=== PATIENT | male | born 1945 | race Caucasian/White ===

== ENCOUNTER 2017-01-14 01:37 | Emergency (ER) | payer MEDICARE, OTHER ==
[~2017-01-14] VITALS: Ht 182.9 cm; Wt 99.8 kg
[~2017-01-14 01:37] MED LIST: ATEN-60 PO; INSULIN SC; LISI-646 PO
[2017-01-14 02:34] LABS: Basophils # (auto) 0.1 uL; Basophils % (auto) 0.5 % (0.0-2.0); Eosinophils # (auto) 0.3 uL; Eosinophils % (auto) 2.5 % (0.0-7.0); Hematocrit 39.1 % (41.0-53.0); Lymphocytes # (auto) 1.2 uL; Mean Corpuscular Hgb Conc. 33.3 g/dL (32.0-36.0); Mean Corpuscular Volume 90.2 fL (80.0-100.0); Mean Platelet Volume 7.9 fL (7.4-10.4); Monocytes % (auto) 7.5 % (0.0-12.0); Neutrophils # (auto) 10.4 uL; Neutrophils % (auto) 80.5 % (37.0-80.0); Platelet Count (auto) 277 10^3/uL (140-450); Red Cell Distribution Width 13.6 % (11.6-16.0); SUSPECT VIEW TRANSMISSION
[2017-01-14 02:49] LABS: Prothrombin Time 12.2 sec (9.37-12.3)
[2017-01-14 02:55] LABS: Albumin 3.7 g/dL (3.4-5.0); Calcium 8.9 mg/dL (8.5-10.1); Magnesium 2.3 mg/dL (1.6-2.6); Potassium 3.1 mmol/L (3.5-5.1)
[2017-01-14 02:58] LABS: BUN/Creatinine Ratio 19.6; Bilirubin, Total 0.3 mg/dL (0.2-1.0); Total Protein 7.2 g/dL (6.4-8.2)
[2017-01-14 03:02] LABS: INR 1.18 (0.9-1.15)
[2017-01-14] MEDS ORDERED: DEXTROSE (50%) 50ML SYRG IV ONE (03:30)
[2017-01-14 05:40] VITALS: BP 142/62
== END 2017-01-14 06:50 | disposition home or self-care (01) ==
LOC: EDBD 01:37 → ER 01:39
DX: E11.649 Type 2 diabetes mellitus with hypoglycemia without coma (principal); R07.81 Pleurodynia; Z79.4 Long term (current) use of insulin
CPT/HCPCS: 36415; 70450; 71250; 72125; 80053; 82962; 83735; 84484; 85025; 85610; 85730; 93005; 96374; 99285; J7042

== ENCOUNTER 2019-09-17 13:50 | Emergency (ER) | payer OTHER ==
[~2019-09-17] VITALS: Ht 180.3 cm; Wt 113.4 kg
[2019-09-17] MEDS ORDERED: SODIUM BICARBONATE 8.4% INJ 50ML SYRINGE IV ONE (13:51)
[2019-09-17] MEDS ORDERED: EPINEPHrine HCL 1 MG/10 ML SYRG IV ONE (13:51)
== END 2019-09-17 15:42 | disposition expired ==
LOC: EDBD 13:50 → ER 13:50
DX: I46.9 Cardiac arrest, cause unspecified (principal); R41.82 Altered mental status, unspecified; E11.9 Type 2 diabetes mellitus without complications; E78.5 Hyperlipidemia, unspecified; I10 Essential (primary) hypertension; I25.2 Old myocardial infarction
CPT/HCPCS: 92950; 99285; J0171